=== PATIENT | female | born 1955 | race Two or more races ===

== ENCOUNTER 2018-07-26 09:56 | Outpatient (CLI) | payer OTHER ==
[~2018-07-26 09:56] MED LIST: SYNTHROID88 MCG; WELLBUTRIN SR200 MG
== END 2018-07-26 17:00 | disposition home or self-care (01) ==
LOC: MAMO-SONO 09:56
DX: Z12.31 Encounter for screening mammogram for malignant neoplasm of breast (principal); N60.11 Diffuse cystic mastopathy of right breast

== ENCOUNTER 2019-01-30 09:45 | Outpatient (CLI) | payer OTHER | END 2019-01-30 09:48 | disposition home or self-care (01) | LOC: RAD 09:45 → MAMO-SONO 09:45 → RAD 09:48 | DX: Z00.00 Encounter for general adult medical examination without abnormal findings (principal); R10.2 Pelvic and perineal pain; R94.5 Abnormal results of liver function studies ==

== ENCOUNTER 2019-02-10 09:06 | Outpatient (CLI) | payer OTHER | END 2019-02-10 09:09 | disposition home or self-care (01) | LOC: TOM 09:06 | DX: R10.84 Generalized abdominal pain (principal) | CPT/HCPCS: 74160; Q9965 ==

== ENCOUNTER 2019-02-10 09:27 | Outpatient (CLI) | payer OTHER | END 2019-02-10 09:34 | disposition home or self-care (01) | LOC: LAB 09:27 | DX: N20.0 Calculus of kidney (principal) ==

== ENCOUNTER 2019-09-03 09:36 | Outpatient (CLI) | payer OTHER | END 2019-09-03 09:40 | disposition home or self-care (01) | LOC: MAMO-SONO 09:36 | DX: Z12.31 Encounter for screening mammogram for malignant neoplasm of breast (principal); Z87.898 Personal history of other specified conditions; N60.11 Diffuse cystic mastopathy of right breast; M26.602 Left temporomandibular joint disorder, unspecified ==

== ENCOUNTER 2019-09-18 07:49 | Outpatient (CLI) | payer OTHER | END 2019-09-18 07:51 | disposition home or self-care (01) | LOC: TOM 07:49 | DX: R55 Syncope and collapse (principal) ==

== ENCOUNTER 2020-05-10 11:13 | Outpatient (CLI) | payer OTHER | END 2020-05-10 11:17 | disposition home or self-care (01) | LOC: SONOGRAMA 11:13 | PROVIDERS: ATTEND Internal Medicine | DX: D37.030 Neoplasm of uncertain behavior of the parotid salivary glands (principal) ==

== ENCOUNTER → 2020-11-26 | Outpatient (CLI) | payer OTHER | END | disposition home or self-care (01) | LOC: MAMO-SONO 10:45 | PROVIDERS: ATTEND Obstetrics & Gynecology | DX: N60.11 Diffuse cystic mastopathy of right breast (principal); Z12.31 Encounter for screening mammogram for malignant neoplasm of breast ==

== ENCOUNTER 2022-01-05 13:06 | Outpatient (CLI) | payer OTHER | END 2022-01-05 13:08 | disposition home or self-care (01) | LOC: MAMO-SONO 13:06 | PROVIDERS: ATTEND Internal Medicine | DX: Z12.31 Encounter for screening mammogram for malignant neoplasm of breast (principal) ==

== ENCOUNTER 2024-01-23 11:27 | Emergency (ER) | payer OTHER ==
[~2024-01-23] VITALS: Ht 165.1 cm; Wt 72.6 kg
[2024-01-23] MEDS ORDERED: FAMOtidine 10 MG/ML (4ML VIAL) IV PUSH STA (12:32)
[2024-01-23] MEDS ORDERED: ONDANSETRON HCL 2 MG/ML VIAL IV STA (12:32)
[2024-01-23] MEDS ORDERED: RINGERS SOLUTION,LACTATED 500 ML IV STA (12:32)
[2024-01-23] MEDS ORDERED: FLUMAZENIL 0.5 MG/5 ML ML IV STA (12:33)
[2024-01-23] MEDS ORDERED: FAMOTIDINE/PF 20 MG/2 ML VIAL ONE (12:56)
[2024-01-23] MEDS ORDERED: FLUMAZENIL 0.5 MG/5 ML ML IV ONE (12:56)
[2024-01-23] MEDS ORDERED: ONDANSETRON HCL 2 MG/ML VIAL ONE (12:56)
[2024-01-23 13:03] LABS: HEMATOCRIT 39.7 % (36.0-45.00); HEMOGLOBIN 13.7 g/dL (12.0-15.00); MEAN CELL VOLUME 89.4 fL (80.00-100.00); MEAN CORPUSCULAR HEMOGLOBIN 30.9 pg (27.00-32.0); MEAN CORPUSCULAR HGB CONC 34.5 g/dl (32.0-36.0); RED BLOOD COUNT 4.44 M/uL (4.00-6.00); RED CELL DISTRIBUTION WIDTH 14.4 % (11.5-14.5)
[2024-01-23 13:05] LABS: PLATELET COUNT 65 K/uL (150-450)
[2024-01-23 13:54] LABS: CALCIUM 9.2 mg/dL (8.5-10.1); CREATININE SERUM 1.07 mg/dL (0.55-1.02); GFR 50.69; POTASSIUM 3.25 mEq/L (3.5-5.1)
== END 2024-01-23 14:34 | disposition home or self-care (01) ==
LOC: ER 11:27
DX: B34.9 Viral infection, unspecified (principal); R53.1 Weakness
CPT/HCPCS: 36415; 96365; 99282; J2405; J3490 ×2